=== PATIENT | female | born 1960 | race African-American/Black ===

== ENCOUNTER 2018-04-22 15:20 | Emergency (ER) | payer MEDICARE, OTHER ==
[~2018-04-22] VITALS: Ht 170.2 cm; Wt 86.6 kg
[~2018-04-22 15:20] MED LIST: CALC600T PO; CHOL2000 PO; CYCL10TA2; DIAZ10TA5; DIAZEPAM10 MG PO; DIPH25CA58 PO; DOXY20TA5 PO; FAMO20TA5 PO; FENO160T PO; HYDR25TA PO; LORA5TAB7 PO; MOME17SP NS; MULT-129 PO; OXYC15TA; OXYC30TA PO; POTA20TA4 PO; PRED50TA PO; PSEU30TA PO; TRIA15OI TP
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
[2018-04-22 17:08] VITALS: BP 129/79
== END 2018-04-22 17:41 | disposition home or self-care (01) ==
LOC: ER 15:20
DX: T76.21XA Adult sexual abuse, suspected, initial encounter (principal); R10.2 Pelvic and perineal pain; I10 Essential (primary) hypertension; F41.9 Anxiety disorder, unspecified; Z91.018 Allergy to other foods
CPT/HCPCS: 99281